=== PATIENT | male | born 1955 | race Caucasian/White ===

== ENCOUNTER 2018-01-07 09:59 | Outpatient (CLI) | payer OTHER ==
--- NOTE | 2018-01-07 16:56 | CT Report ---
Procedure Date: 01/07/2018 Accession Number: [id number] / [id number] Procedure: CT - Chest W/O CPT Code: FULL RESULT: EXAM: CT CHEST EXAM DATE: 01/07/2018 10:05 AM. CLINICAL HISTORY: Pulmonary nodule surveillance. COMPARISONS: None. TECHNIQUE: Routine helical CT imaging was performed through the chest. IV contrast: None. Reconstructions: Coronal and sagittal. In accordance with CT protocol optimization, one or more of the following dose reduction techniques were utilized for this exam: automated exposure control, adjustment of mA and/or KV based on patient size, or use of iterative reconstructive technique. FINDINGS: Lungs/Pleura: A 5 x 12 mm pulmonary nodule is in the right lower lobe adjacent to the major fissure (4/34). Mediastinum: Normal. No adenopathy or masses. The heart and great vessels are normal. Bones: Unremarkable. Visualized Abdomen: Cholelithiasis is seen. Other: Arterial calcifications indicate atherosclerosis. IMPRESSION: 12 mm pulmonary nodule in the right lower lobe. Recommend follow-up chest CT in 3 months to confirm stability if prior comparisons are not available. RADIA
== END 2018-01-07 10:00 | disposition home or self-care (01) ==
LOC: DI 09:59
PROVIDERS: ATTEND Emergency Medicine Emergency Medical Services
DX: R91.1 Solitary pulmonary nodule (principal)
CPT/HCPCS: 71250

== ENCOUNTER 2019-04-10 20:11 | Emergency (ER) | payer MEDICARE, OTHER ==
[2019-04-10] MEDS ORDERED: AMIODARONE 150 MG/3 ML VIAL IVP STA (20:39)
--- NOTE | 2019-04-10 20:44 | ED Physician Documentation ---
PD HPI CHEST PAIN - Stated complaint Stated Complaint: RAPID HB - Chief complaint Chief Complaint: Cardiac - History obtained from History obtained from: Patient, Family - History of Present Illness Timing - onset: Other (He had some palpitations several months ago. No specific diagnosis was made with his physician. Over the last couple of days he has had intermittent episodes of lightheadedness and feeling like his heart rate beat is rapid with heavy arms. There is no chest pain or trouble breathing.) Review of Systems Ten Systems: 10 systems reviewed and negative Nose: denies: Rhinorrhea / runny nose, Congestion Cardiac: denies: Chest pain / pressure, Palpitations, Pedal edema, Calf pain Respiratory: denies: Dyspnea, Cough, Hemoptysis, Wheezing PD PAST MEDICAL HISTORY - Past Medical History Cardiovascular: None Respiratory: None Endocrine/Autoimmune: None GI: None : None HEENT: None Psych: None Musculoskeletal: None Derm: None - Past Surgical History HEENT: Tonsil/Adenoidectomy - Present Medications Home Medications: Ambulatory Orders Medication Instructions Recorded Confirmed No Known Home Medications 05/13/14 05/13/14 - Allergies Allergies/Adverse Reactions: Allergies Allergy/AdvReac Type Severity Reaction Status Date / Time No Known Drug Allergies Allergy Verified 04/10/19 20:21 PD ED PE NORMAL - Vitals Vital signs reviewed: Yes - General General: Alert and oriented X 3, Other (On the monitor he is alternating about 50-50 between normal sinus rhythm with some ectopy versus ventricular tachycardia which she is symptomatic with but conscious. ) - HEENT HEENT: PERRL, EOMI - Neck Neck: Supple, no meningeal sign, No bony TTP - Cardiac Cardiac: No murmur, Other (very rapid) - Respiratory Respiratory: No respiratory distress, Clear bilaterally - Abdomen Abdomen: Soft, Non tender - Back Back: No CVA TTP, No spinal TTP - Extremities Extremities: No edema, No calf tenderness / cord - Neuro Neuro: Alert and oriented X 3, Normal speech Results - Vitals Vitals: Vital Signs - 24 hr 04/10/19 04/10/19 04/10/19 20:24 20:43 21:00 Temperature 36.3 C L Heart Rate 64 93 70 Respiratory 18 11 L 12 Rate Blood Pressure 128/101 H 143/108 H 144/81 H O2 Saturation 99 97 95 04/10/19 04/10/19 04/10/19 21:36 21:37 21:38 Temperature Heart Rate 88 88 87 Respiratory 10 L 10 L 12 Rate Blood Pressure 137/92 H 137/92 H 135/87 H O2 Saturation 96 96 04/10/19 04/10/19 04/10/19 21:43 21:44 21:45 Temperature Heart Rate 87 88 87 Respiratory 17 15 16 Rate Blood Pressure 138/94 H 144/81 H 135/98 H O2 Saturation 96 96 96 04/10/19 04/10/19 04/10/19 21:46 21:47 21:48 Temperature Heart Rate 89 97 93 Respiratory 17 20 9 L Rate Blood Pressure 153/101 H 148/90 H 143/108 H O2 Saturation 97 96 97 04/10/19 04/10/19 21:49 22:08 Temperature Heart Rate 94 79 Respiratory 15 13 Rate Blood Pressure 124/104 H 122/83 H O2 Saturation 97 97 Oxygen O2 Source Room air - EKG (time done) 2030 Rate: Rate (enter#) (200) Rhythm: V tach, Other (with some sinus as well) Computer interpretation: Agree with computer 2118 Rate: Rate (enter#) (91) Rhythm: NSR (freq PVC) Winston: Normal Intervals: Normal ME QRS: LVH Ischemia: No: ST elevation c/w ischemia Computer interpretation: Agree with computer - Labs Labs: Laboratory Tests 04/10/19 04/10/19 04/10/19 20:38 20:38 20:38 WBC 8.5 RBC 4.98 Hgb 15.3 Hct 44.7 MCV 89.8 MCH 30.7 MCHC 34.2 RDW 12.6 Plt Count 202 MPV 10.4 Neut # (Auto) 5.6 Lymph # (Auto) 2.0 Sutter # (Auto) 0.8 Eos # (Auto) 0.1 Baso # (Auto) 0.1 Absolute Nucleated RBC 0.00 Nucleated RBC % 0.0 Sodium 142 Potassium 3.2 L Chloride 105 Carbon Dioxide 27 Anion Gap 10.0 BUN 16 Creatinine 1.3 H Estimated GFR (MDRD) 55 L Glucose 107 H Calcium 9.1 Magnesium 2.4 Total Bilirubin 0.7 AST 23 ALT 32 Alkaline Phosphatase 76 Troponin I High Sens 18.9 Total Protein 7.9 Albumin 4.6 Globulin 3.3 Albumin/Globulin Ratio 1.4 Lipase 35 PD MEDICAL DECISION MAKING - ED course ED course: He was attended to immediately on arrival. He is in and out of symptomatic but fairly hemodynamically stable ventricular tachycardia. He was administered amiodarone 150 mg IV push. [facility], [facility]. After the amiodarone bolus and drip was started 1 mg/min. He had no more ventricular tachycardia on the monitor. [facility]gardo was called for cardiology consultation and transfer at 9:30 PM. We were quickly notified that they have no telemetry beds available and [facility] was called. At approximately 9:46 PM he did have a couple more episodes of short but nonsustained ventricular tachycardia and was administered Lopressor 5 mg IV. Spoke with Dr Cotto Cardiology at [facility] at 2004. Recommended continuing the amiodarone at 1 mg/min per all night. Full dose aspirin. He will see him in the morning. N.p.o. after midnight. Defers to the hospitalist there for admission. Accepted by Dr. Elizabeth, the hospitalist at [facility] at 10:45 PM and cobras were completed. He is stable for transfer to a higher level care for cardiology evaluation. - Critical Care Time(min): 42 Time Includes: Direct patient care, Review records, Reassess patient, Document care, Coordinate care, Medical consult, Family consult for tx dec Data interpretation: Labs, Pulse ox Procedures included in critical care time: Peripheral IV Procedures excluded from critical care time: EKG Departure - Departure Disposition: 02 Transfer Acute Care Hosp Clinical Impression: Ventricular tachycardia Condition: Serious
[2019-04-10 20:45] LABS: BASOPHILS # (AUTO) 0.1 10^3/uL (0.0-0.1); BASOPHILS % (AUTO) 0.7 %; EOSINOPHILS # (AUTO) 0.1 10^3/uL (0.0-0.7); EOSINOPHILS % (AUTO) 0.7 %; HGB - HEMOGLOBIN 15.3 g/dL (14.0-18.0); LYMPHOCYTES % (AUTO) 23.4 %; MEAN CORPUSCULAR HEMOGLOBIN 30.7 pg (27.0-31.0); MEAN CORPUSCULAR HGB CONC 34.2 g/dL (32.0-36.0); MEAN CORPUSCULAR VOLUME 89.8 fL (80.0-94.0); MEAN PLATELET VOLUME 10.4 fL (7.4-11.4); MONOCYTES # (AUTO) 0.8 10^3/uL (0.0-1.0); MONOCYTES % (AUTO) 9.1 %; NEUTROPHILS # (AUTO) 5.6 10^3/uL (1.5-6.6); NEUTROPHILS % (AUTO) 65.7 %; PLT - PLATELET COUNT 202 10^3/uL (130-450); RED BLOOD COUNT 4.98 10^6/uL (4.70-6.10); RED CELL DISTRIBUTION WIDTH 12.6 % (12.0-15.0); WHITE BLOOD COUNT 8.5 x10^3/uL (4.8-10.8)
[2019-04-10] MEDS ORDERED: AMIODARONE 360 MG/200 ML 200 ML IV ONE (20:46)
[2019-04-10] MEDS ORDERED: METOPROLOL 5 MG/5 ML VIAL IVP ONE (20:50)
[2019-04-10] MEDS ORDERED: AMIODARONE 150 MG/100 ML 100 ML IV ONE (20:51)
[2019-04-10 20:59] LABS: ALBUMIN 4.6 g/dL (3.2-5.5); ALBUMIN/GLOBULIN RATIO 1.4 (1.0-2.2); BILIRUBIN,TOTAL 0.7 mg/dL (0.2-1.0); CALCIUM 9.1 mg/dL (8.5-10.3); CREATININE 1.3 mg/dL (0.6-1.2); MAGNESIUM 2.4 mg/dL (1.7-2.8); TOTAL PROTEIN 7.9 g/dL (6.7-8.2)
--- NOTE | 2019-04-10 21:29 | XRAY Report ---
Reason: chest pain Procedure Date: 04/10/2019 Accession Number: [id number] / [id number] Procedure: XR - Chest 1 View X-Ray CPT Code: 91252 FULL RESULT: EXAM: CHEST RADIOGRAPHY EXAM DATE: 04/10/2019 08:51 PM. CLINICAL HISTORY: Chest pain. COMPARISON: None. TECHNIQUE: 1 view. FINDINGS: Lungs/Pleura: No focal airspace disease or edema. Negative for pneumothorax. Lung volumes appear normal. Mediastinum: Heart size is normal. Trachea is midline. There is mild aortic tortuosity. Other: None. IMPRESSION: Negative for an acute cardiopulmonary abnormality. RADIA
[2019-04-10] MEDS ORDERED: METOPROLOL 5 MG/5 ML VIAL IVP STA (21:45)
[2019-04-10] MEDS ORDERED: POTASSIUM CHLOR 10 MEQ/100 ML 10 MEQ/100 ML BAG IV ONE (22:06)
[2019-04-10] MEDS ORDERED: ASPIRIN CHEW 81 MG TABLET PO STA (22:07)
[2019-04-10] MEDS ORDERED: SODIUM CHLORIDE 0.9% 500 ML IV ONE (23:10)
[2019-04-10] MEDS ORDERED: SODIUM CHLORIDE 0.9% 1,000 ML IV ONE (23:10)
[2019-04-11 00:24] VITALS: BP 120/70
== END 2019-04-11 02:01 | disposition short-term general hospital (02) ==
LOC: ED 20:11
DX: I47.2 Ventricular tachycardia (principal); I49.3 Ventricular premature depolarization
CPT/HCPCS: 36415; 71045; 80053; 83690; 83735; 84484; 85025; 93005; 96365; 96366; 96375; 99285; 99291; A9270; J0282

== ENCOUNTER 2019-04-11 02:03 | Outpatient (CLI) | payer MEDICARE | END 2019-04-11 02:04 | disposition short-term general hospital (02) | LOC: EMS 02:03 | PROVIDERS: ATTEND Surgery | DX: I47.2 Ventricular tachycardia (principal) | CPT/HCPCS: A0425; A0426 ==

== ENCOUNTER 2020-03-05 11:53 | Outpatient (CLI) | payer OTHER ==
--- NOTE | 2020-03-05 16:57 | CT Report ---
PROCEDURE: Low Dose Lung Cancer Screen INDICATIONS: Evaluate for lung carcinoma. TECHNIQUE: Noncontrast low-dose 5 mm thick sections acquired from the pulmonary apices to the posterior costophr enic angles. 7 mm thick coronal and sagittal MIP reformats were then acquired. For radiation dose r eduction, the following was used: automated exposure control, adjustment of mA and/or kV according t o patient size. COMPARISON: Prior chest plain film 04/10/[address] 01/07/2018 FINDINGS: Image quality: Excellent. Lungs and pleura: Within the anterior border of the right lower lobe mid chest level seen on CT seri es 4 image 182 there is an ovoid solid-appearing masslike lesion which measures up to 8 x 11 mm. This is better seen than on the prior comparison study from December 2017 but has not enlarged and therefore is presumed to be benign etiology. Note is made of several small foci of linear scarring in each lung base. Mediastinum: Heart size is normal. No pericardial effusion. No mediastinal adenopathy by size crit eria. Thoracic aorta and central pulmonary arteries are normal in size. Esophagus is normal in srinivasa gisele. No hiatal hernia. Bones and chest wall: No suspicious bony lesions. No vertebral body compression fractures. No axil sergey or supraclavicular adenopathy by size criteria. The thyroid is normal in size. Abdomen: Visualized upper abdomen solid organs and bowel loops appear normal in the absence of contr ast. IMPRESSION: A previously present nodule within the right lower lobe abutting the major fissure at the mid chest l evel is again seen, and has not enlarged. No new pulmonary nodule has developed. Minimal lung base sc arring. Lung RADS category 1, follow-up screening chest CT for early development of lung carcinoma utilizing low-dose noncontrast technique is recommended in 1 year. Reviewed by: Artur Akhtar MD on 03/05/2020 4:56 PM PDT Approved by: Artur Ahktar MD on 03/05/2020 4:56 PM PDT Station ID: [id number]
== END 2020-03-05 11:54 | disposition home or self-care (01) ==
LOC: DI 11:53
PROVIDERS: ATTEND Internal Medicine
DX: Z12.2 Encounter for screening for malignant neoplasm of respiratory organs (principal); R91.1 Solitary pulmonary nodule
CPT/HCPCS: G0297 ×2

== ENCOUNTER 2020-09-18 16:49 | Outpatient (CLI) | payer OTHER ==
[2020-09-18 18:07] LABS: BASOPHILS % (AUTO) 0.7 %; EOSINOPHILS # (AUTO) 0.1 10^3/uL (0.0-0.7); HCT - HEMATOCRIT 29.7 % (42.0-52.0); HGB - HEMOGLOBIN 9.7 g/dL (14.0-18.0); LYMPHOCYTES # (AUTO) 1.1 10^3/uL (1.5-3.5); LYMPHOCYTES % (AUTO) 18.3 %; MEAN CORPUSCULAR HEMOGLOBIN 29.5 pg (27.0-31.0); MEAN CORPUSCULAR HGB CONC 32.7 g/dL (32.0-36.0); MEAN CORPUSCULAR VOLUME 90.3 fL (80.0-94.0); MEAN PLATELET VOLUME 9.4 fL (7.4-11.4); MONOCYTES # (AUTO) 0.5 10^3/uL (0.0-1.0); MONOCYTES % (AUTO) 7.6 %; NEUTROPHILS # (AUTO) 4.2 10^3/uL (1.5-6.6); NEUTROPHILS % (AUTO) 70.7 %; PLT - PLATELET COUNT 303 10^3/uL (130-450); RED BLOOD COUNT 3.29 10^6/uL (4.70-6.10); RED CELL DISTRIBUTION WIDTH 13.6 % (12.0-15.0)
[2020-09-18 18:26] LABS: CREATININE 1.2 mg/dL (0.6-1.2); CRP - C-REACTIVE PROTEIN 15.8 mg/dL (0-1.0); POTASSIUM 3.6 mmol/L (3.5-5.0)
--- NOTE | 2020-09-19 08:28 | XRAY Report ---
PROCEDURE: Chest 2 View X-Ray INDICATIONS: COUGH, FEVERS, POST ABLATION TECHNIQUE: 2 view(s) of the chest. COMPARISON: None. FINDINGS: Surgical changes and devices: An electronic device is superimposed over the left chest wall. Lungs and pleura: No pleural effusions or pneumothorax. Lungs are clear. Mediastinum: Mediastinal contours are normal. Heart size is normal. Bones and chest wall: No suspicious bony abnormalities. Soft tissues appear unremarkable. IMPRESSION: No acute cardiopulmonary abnormality Reviewed by: Leonel Sun on 09/19/2020 8:27 AM PDT Approved by: Leonel Sun on 09/19/2020 8:27 AM PDT Station ID: [id number]
== END 2020-09-18 16:50 | disposition home or self-care (01) ==
LOC: DI 16:49
PROVIDERS: ATTEND Nurse Practitioner Family
DX: R05 Cough (principal); R50.9 Fever, unspecified
CPT/HCPCS: 36415; 80048; 85025; 85651; 86140

== ENCOUNTER 2021-01-29 06:57 | Day surgery (SDC) | payer OTHER ==
[~2021-01-29 06:57] MED LIST: CYCLOPENTOLATE 1% OPHTH DROPS 2 ML ONE; KETOROLAC 0.45% OPHTH DROPS ONE; PHENYLEPHRINE 2.5% OPHTH 2 ML DROPS ONE; PROPARACAINE 0.5% OPHTH DROPS 15 ML ONE
[2021-01-29] MEDS ORDERED: BSS/LIDOCAINE/EPINEPHRINE 1 ML SYRINGE ONE (06:59)
[2021-01-29] MEDS ORDERED: TIMOLOL 0.5% OPHTH DROPS ONE (06:59)
[2021-01-29] MEDS ORDERED: EPINEPHrine 1 MG/ML AMP ONE (06:59)
[2021-01-29] MEDS ORDERED: VANCOMYCIN OPHTHALMI 8MG/0.8ML 8 MG/0.8 ML SYRINGE IO ONE ×2 (06:59→09:40)
[2021-01-29] MEDS ORDERED: TRIAMCIN/MOXIFLOX OPHTHALMIC 0.6 ML VIAL IO ONE ×2 (06:59→09:40)
[2021-01-29] MEDS ORDERED: BRIMONIDINE 0.2% OPHTH DROPS 5 ML ONE (06:59)
[2021-01-29] MEDS ORDERED: LACTATED RINGERS 1,000 ML IV ONE ×2 (07:33→08:54)
--- NOTE | 2021-01-29 07:52 | ANESTHESIA ---
Pre-Anesthesia VS, & Labs - Diagnosis L nuclear sclerotic cataract - Procedure L extraction cataract w/IOL Vital Signs: Temp Pulse Resp BP Pulse Ox 36.2 C L 68 18 127/76 96 01/29/21 07:33 01/29/21 07:33 01/29/21 07:33 01/29/21 07:33 01/29/21 07:33 Height: 5 ft 10 in Weight (kg): 88.9 kg Body Mass Index: 28.0 BMI Classification: Overweight - NPO >8 hours - Lab Results Lab results reviewed: Yes Home Medications and Allergies Home Medications: Ambulatory Orders Aspirin [Aspirin EC] 81 mg PO DAILY 01/28/21 Atorvastatin Calcium 40 mg ORAL DAILY 01/28/21 Lisinopril [Zestril] 10 mg ORAL DAILY 01/28/21 Magnesium 250 mg PO DAILY 01/28/21 Metoprolol Succinate [Toprol Xl] 50 mg ORAL BID 01/28/21 Fluticasone Propionate [Flovent Diskus] 2 sprays IH DAILY 01/29/21 Tiotropium Br/Olodaterol HCl [Stiolto Respimat Inhal Phelps] 2 puffs IH DAILY 01/29/21 Vit A/Vit C/Vit E/Zinc/Copper [Preservision Areds Softgel] 1 each PO BID 01/29/21 Aspirin [Aspirin EC] 81 mg PO DAILY 01/28/21 Atorvastatin Calcium 40 mg ORAL DAILY 01/28/21 Lisinopril [Zestril] 10 mg ORAL DAILY 01/28/21 Magnesium 250 mg PO DAILY 01/28/21 Metoprolol Succinate [Toprol Xl] 50 mg ORAL BID 01/28/21 Fluticasone Propionate [Flovent Diskus] 2 sprays IH DAILY 01/29/21 Tiotropium Br/Olodaterol HCl [Stiolto Respimat Inhal Phelps] 2 puffs IH DAILY 01/29/21 Vit A/Vit C/Vit E/Zinc/Copper [Preservision Areds Softgel] 1 each PO BID 01/29/21 Allergies/Adverse Reactions: Allergies Allergy/AdvReac Type Severity Reaction Status Date / Time No Known Drug Allergies Allergy Verified 01/29/21 07:40 Anes History & Medical History - Anesthetic History Anesthesia Complications: reports: No previous complications Family history of Anesthesia Complications: Denies Family history of Malignant Hyperthermia: Denies - Medical History Cardiovascular: reports: None Pulmonary: reports: None Gastrointestinal: reports: None Urinary: reports: None Neuro: reports: None Musculoskeletal: reports: None Endocrine/Autoimmune: reports: None Blood Disorders: reports: None Skin: reports: None Smoking Status: Current some day smoker Psychosocial: reports: No issues indicated - Surgical History General: reports: Other Eyes Ears Nose Throat (EENT): reports: Tonsil/Adenoidectomy Cardiothoracic: reports: Other (ablation 08/2020, successful) Exam General: Alert, Oriented x3, Cooperative Dental: WNL Mouth Openin Fingerbreadth Neck Mobility: Normal Mallampati classification: II Respiratory: Lungs clear, Normal breath sounds, No respiratory distress Cardiovascular: Regular rate Neurological: Normal speech Mental/Cognitive Status: Alert/Oriented X3, Normal for patient Cognitive Status: Within normal limits Plan Anesthesia Type: MAC Consent for Procedure(s) Verified and Reviewed: Yes Code Status: Attempt Resuscitation ASA classification: 3-Severe systemic disease Is this case an emergency?: No
[2021-01-29] MEDS ORDERED: MIDAZOLAM 2 MG/2 ML VIAL ONE (08:37)
[2021-01-29 09:06] VITALS: BP 108/80
--- NOTE | 2021-01-29 09:11 | OPERATIVE REPORT ---
Operative Report - Other Other Information/Narrative: Date of Surgery: 01/29/21 Preop Dx: Visually significant cataract left eye. This was the first cataract surgery. Postop Dx: Same Procedure: Phacoemulsification with posterior chamber intraocular lens implant left eye Surgeon: Dr. Davy Madden Anesthesia: Monitored anesthesia care Complications: None Operative Indications: This is a 65-year-old M with progressive vision loss in the left eye due to 3+ nuclear sclerotic cataract. Best corrected visual acuity was 20/40 with glare to 20/800 vision in the left eye. Indications for surgery were: - Difficulty seeing words on a computer screen - Difficulty reading - Difficulty driving in low light or at night - Difficulty driving at night because of headlights from other vehicles The patient was consented at length concerning the risks and benefits of cataract surgery after which the patient expressed a desire to proceed with surgery. Operative Procedure: The patient was taken into OR#3 and placed under monitored anesthesia care. A surgical time-out was conducted confirming correct patient, correct procedure, and correct surgical site. The patient was given topical anesthesia and then prepped and draped in the usual sterile fashion. The eye was entered at the 6 and 3 oclock positions. Intracameral Shugarcaine was injected into the anterior chamber followed by a dispersive viscoelastic. A continuous-tear curvilinear capsulorhexis was performed. The nucleus was hydrodissected and phacoemulsified. The cortex was evacuated using automated infusion and aspiration. A cohesive viscoelastic was injected into the capsular bag and a 17.5 diopter intraocular lens was inserted into the bag. Infusion and aspiration were used to evacuate the viscoelastic materials from the eye. The wounds were hydrated and the eye inflated to physiologic pressure using balanced salt solution. Approximately 0.25ml of a mixture of triamcinolone and moxifloxacin was injected trans-sclerally into the vitreous in the inferotemporal quadrant using a 30 gauge cannula. An additional 0.55ml of a mixture of triamcinolone, moxifloxacin, and vancomycin was injected subconjunctivally in the superior quadrant for infection and inflammation prophylaxis. Wound integrity was checked with Weck-Lima sponges. The patient was taken from the operating room in good condition and given post-op instructions.
--- NOTE | 2021-01-29 09:19 | ANESTHESIA POST OP EVALUATION ---
Anesthesia Post Eval - Post Anesthesia Eval Vitals: Last Vital Signs Temp 36.1 C L 01/29/21 08:54 Pulse 73 01/29/21 09:06 Resp 13 01/29/21 09:06 BP 108/80 01/29/21 09:06 Pulse Ox 95 01/29/21 09:06 CV Function Including HR & BP: Stable Pain Control: Satisfactory Nausea & Vomiting: Negative Mental Status: Baseline Respiratory Status: Airway Patent Hydration Status: Satisfactory Anesthesia Complications: None
[2021-01-29] MEDS ORDERED: CHONDR SULF/HYALURONATE SYRINGE IO ONE (09:40)
[2021-01-29] MEDS ORDERED: EPINEPHrine 1 MG/ML AMP IR ONE (09:40)
[2021-01-29] MEDS ORDERED: PROPARACAINE 0.5% OPHTH DROPS 15 ML EACHEYE ONE (09:40)
[2021-01-29] MEDS ORDERED: BSS/LIDOCAINE/EPINEPHRINE 1 ML SYRINGE IO ONE (09:40)
[2021-01-29] MEDS ORDERED: BRIMONIDINE 0.2% OPHTH DROPS 5 ML OPTH ONE (09:40)
[2021-01-29] MEDS ORDERED: TIMOLOL 0.5% OPHTH DROPS OPTH ONE (09:40)
== END 2021-01-29 06:58 | disposition home or self-care (01) ==
LOC: SDS 06:57
PROVIDERS: ATTEND Ophthalmology
DX: H25.12 Age-related nuclear cataract, left eye (principal); F17.200 Nicotine dependence, unspecified, uncomplicated
CPT/HCPCS: 66984; A9270; J3490; J7120